=== PATIENT | male | born 1955 | race Two or more races ===

== ENCOUNTER 2018-05-01 10:09 | Emergency (ER) | payer BC ==
--- OUTSIDE RECORDS SUMMARY | 2018-05-01 10:18 | XMS REPORT | Continuity of Care Document ---
:1955 External Reference #:[id number] Author Name Fanny Vallejo Care Team Providers Name Role Phone Chris Ramsey MD Primary Care Physician Unavailable Payers Type Date Identification Numbers Payment Provider Subscriber Effective: Policy Number: [id number] BS Gabrielle Francisco Javier Pressley 2013 PayID: [id number] [address] [address] [place] [address] Advance Directives Description No Information Available Problems Date Description Provider Status Onset: 04/16/2018 Angina co-occurrent and due to coronary Bindu Akbar M.D. Active arteriosclerosis Onset: 03/06/2017 Carotid artery occlusion Bindu Akbar M.D. Active Onset: 12/15/2015 Obstructive sleep apnea syndrome Talya Gaston MD Active Onset: 10/02/2015 Obesity Talya Gaston MD Active Onset: 10/02/2015 Disturbance in sleep behavior Talya Gaston MD Active Onset: 09/12/2015 Pure hypercholesterolemia Bindu Akbar M.D. 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 Active Onset: 08/22/2014 Hyperlipidemia Bindu Akbar M.D. Active Onset: 08/22/2014 Coronary arteriosclerosis Bindu Akbar M.D. Active Family History Date Family Member(s) Problem(s) Comments General Diabetes Father due to Natural Causes () Father due to in his 90's () Mother due to Diabetes () Mother due to at () age 55 Siblings 2 Sister at age 63 d/t DM Brother healthy Social History Type Date Description Comments Sex Unknown Marital Status Lives With Alone Occupation Retired Tobacco Use Start: Unknown Never Smoked Cigarettes Smoking Status Reviewed: 04/16/18 Never Smoked Cigarettes ETOH Use Denies alcohol use Tobacco Use Start: Unknown Patient has never smoked Recreational Drug Use Denies Drug Use Exercise Type/Frequency Exercises rarely Allergies, Adverse Reactions, Alerts Description No Known Drug Allergies Medications Medication Date Status Form Strength Qnty SIG Indications Ordering Provider Mandibular 12/20/ Active Device dear , Talya Advancement 2015 please Marilin Device evaluate and MD fabricate oral appliance for mild sleep apnea Crestor 09/17/ Active Tablets 20mg 45tab 1/2 by mouth Bindu 2015 s every [place], M.D. Triamcinolone / Active Ointment 0.5% apply to Unknown Acetonide 0000 affected area twice daily as needed Actos / Active Tablets 45mg 1 by mouth Unknown 0000 every day ( taking in Am breakfast) Lisinopril / Active Tablets 5mg 1 by mouth Unknown 0000 every day ( taking in the Am breakfast same time as Amlodipine) Glipizide / Active Tablets 10mg 1 by mouth Unknown 0000 twice a day Janumet / Active Tablets 50-1000mg 1 by mouth Unknown 0000 twice a day Aspirin Low / Active Chewtabs 81mg 1 by mouth Unknown Strength 0000 every day ( taking in Am breakfast) Gabapentin / Active Capsules 100mg 1 by mouth Unknown 0000 three times a day Lantus Solostar / Active Solution 100Unit/M 12- 16 ml Unknown 0000 Pen-Inject L once a day Ulticare Micro / Active Misc 31G X 8 use daily Unknown Pen Chilton 31G 0000 mm daily with X 8mm pen injections. Freestyle Lite / Active use as Unknown Test Strip 0000 directed twice day or as needed Amlodipine 07/23/ Hx Tablets 2.5mg 30tab 1 by mouth I10 Bindu Besylate 2016 - every day ( [place], 08/08/ taking in Am M.D. 2016 breakfast) Bystolic 02/20/ Hx Tablets 5mg 15tab 1/2 tablet Bindu 2015 - by mouth Naomie, 07/23/ every day M.D. 2016 (pt is not taking ) Norvasc 09/11/ Hx Tablets 2.5mg 30tab 1 tap PO q I25.719 Bindu 2015 - s day [place], 11/16/ M.D. 2015 Metoprolol 09/11/ Hx Tablets ER 25mg 90tab 1/2 by mouth I25.719 Bindu Succinate ER 2016 - 24HR s every day [place], 12/18/ M.D. 2015 Lantus Solostar / Hx Solution 100Unit/M 10 units Unknown 0000 - Pen-Inject L daily 2015 Simvastatin / Hx Tablets 40mg 1 by mouth Unknown 0000 - every night 09/17/ at bedtime 2015 Viagra / Hx Tablets 100mg by mouth 0.5 Unknown 0000 - or 1 tab 1h 08/04/ 2015 intercourse Cialis / Hx prn Unknown 0000 - 2016 Advil / Hx Capsules 200mg 2 caps as Unknown 0000 - needed 2018 Amoxicillin/Cla / Hx Tablets 875-125mg 1 by mouth a Unknown vulanate - day Potassium 2018 Medications Administered in Office Medication Date Status Form Strength Qnty SIG Indications Ordering Provider Technetium TC Administered Injection Luke Bautista [id number] Juan R Huynh M.D., [facility], Per Unit Dose FASNC Up To 40 Millicuries Technetium TC Administered Injection Bindu 99M [id number] Juan R Akbar M.D. Per Unit Dose Up To 40 Millicuries Immunizations Description No Information Available Vital Signs Date Vital Result Comment 04/16/2018 3:45pm Height 63 inches 5'3" Weight 162.00 lb Heart Rate 91 /min BP Systolic Sitting 180 mmHg BP Diastolic Sitting 90 mmHg BMI (Body Mass Index) 28.7 kg/m2 03/06/2017 3:27pm Height 63 inches 5'3" Weight 153.00 lb w/ shoes Heart Rate 70 /min reg BP Systolic Sitting 136 mmHg Rue, reg cuff BP Diastolic Sitting 74 mmHg Rue, reg cuff BP Systolic Standing 134 mmHg Rue BP Diastolic Standing 80 mmHg Rue Respiratory Rate 16 /min BMI (Body Mass Index) 27.1 kg/m2 Ejection Fraction 60% as of 2015 stress test 08/08/2016 9:35am Height 63 inches 5'3" Weight 153.00 lb with shoes Heart Rate 70 /min BP Systolic Sitting 110 mmHg Rue reg cuff BP Diastolic Sitting 70 mmHg Rue reg cuff BP Systolic Standing 120 mmHg Rue reg cuff BP Diastolic Standing 90 mmHg Rue reg cuff Respiratory Rate 16 /min BMI (Body Mass Index) 27.1 kg/m2 07/23/2016 9:45am Height 63 inches 5'3" Weight 152.25 lb with shoes Heart Rate 62 /min BP Systolic Sitting 134 mmHg Lue reg cuff BP Diastolic Sitting 70 mmHg Lue reg cuff BP Systolic Standing 124 mmHg Lue reg cuff BP Diastolic Standing 70 mmHg Lue reg cuff Respiratory Rate 16 /min BMI (Body Mass Index) 27.0 kg/m2 07/12/2016 8:51am Height 63 inches 5'3" Weight 147.50 lb no shoes Heart Rate 64 /min BP Systolic Sitting 106 mmHg Rue reg cuff BP Diastolic Sitting 66 mmHg Rue reg cuff BP Systolic Standing 90 mmHg Rue reg cuff BP Diastolic Standing 62 mmHg Rue reg cuff Respiratory Rate 16 /min BMI (Body Mass Index) 26.1 kg/m2 01/18/2016 1:31pm Height 63 inches 5'3" Weight 152.00 lb Heart Rate 98 /min 110 standing BP Systolic Sitting 146 mmHg Rue, reg cuff BP Diastolic Sitting 94 mmHg Rue, reg cuff BP Systolic Standing 134 mmHg Rue BP Diastolic Standing 84 mmHg Rue Respiratory Rate 16 /min BMI (Body Mass Index) 26.9 kg/m2 12/15/2015 8:03am Height 63 inches 5'3" Weight 151.00 lb Heart Rate 73 /min BP Systolic Sitting 126 mmHg BP Diastolic Sitting 76 mmHg Respiratory Rate 14 /min O2 % BldC Oximetry 97 % BMI (Body Mass Index) 26.7 kg/m2 11/20/2015 3:54pm Height 63 inches 5'3" 2 Weight 151.00 lb with sandals Heart Rate 70 /min BP Systolic Sitting 128 mmHg LA reg cuff BP Diastolic Sitting 88 mmHg LA reg cuff BP Systolic Standing 122 mmHg LA reg cuff BP Diastolic Standing 82 mmHg LA reg cuff Respiratory Rate 16 /min BMI (Body Mass Index) 26.7 kg/m2 11/06/2015 2:23pm Height 63 inches 5'3" 2 Weight 150.00 lb with sandals Heart Rate 78 /min BP Systolic Sitting 118 mmHg LA reg cuff BP Diastolic Sitting 70 mmHg LA reg cuff BP Systolic Standing 122 mmHg LA re cuff BP Diastolic Standing 72 mmHg LA re cuff Respiratory Rate 16 /min BMI (Body Mass Index) 26.6 kg/m2 10/02/2015 10:16am Height 63 inches 5'3" 2 Weight 165.00 lb Heart Rate 67 /min BP Systolic Sitting 132 mmHg BP Diastolic Sitting 78 mmHg Respiratory Rate 14 /min O2 % BldC Oximetry 98 % BMI (Body Mass Index) 29.2 kg/m2 Neck Circumference in inches 14.5 09/27/2015 2:25pm Height 64.5 inches 5'4.50" Weight 150.00 lb Heart Rate 80 /min 88 BP Systolic Sitting 110 mmHg left arm, reg cuff BP Diastolic Sitting 70 mmHg left arm, reg cuff BP Systolic Standing 90 mmHg left arm, reg cuff BP Diastolic Standing 70 mmHg left arm, reg cuff Respiratory Rate 20 /min BMI (Body Mass Index) 25.3 kg/m2 Ejection Fraction 60% 09/05/15Nem 09/12/2015 9:09am Height 64.5 inches 5'4.50" Weight 155.00 lb w/ shoes Heart Rate 72 /min BP Systolic Sitting 140 mmHg Rue BP Diastolic Sitting 76 mmHg Rue BP Systolic Standing 142 mmHg Rue, reg cuff BP Diastolic Standing 78 mmHg Rue, reg cuff Respiratory Rate 16 /min BMI (Body Mass Index) 26.2 kg/m2 Ejection Fraction 60% as of 09/05/15 Nem 08/14/2015 2:35pm Height 64.5 inches 5'4.50" Weight 155.00 lb with shoes Heart Rate 96 /min BP Systolic Sitting 134 mmHg LA reg cuff BP Diastolic Sitting 84 mmHg LA reg cuff BP Systolic Standing 132 mmHg LA reg cuff BP Diastolic Standing 82 mmHg LA reg cuff BMI (Body Mass Index) 26.2 kg/m2 09/19/2014 8:50am Height 64.5 inches 5'4.50" Weight 155.75 lb w/o shoes Heart Rate 78 /min reg BP Systolic Sitting 150 mmHg Rue, reg cuff BP Diastolic Sitting 88 mmHg Rue, reg cuff BP Systolic Standing 160 mmHg Rue, reg cuff BP Diastolic Standing 100 mmHg Rue, reg cuff Respiratory Rate 18 /min BMI (Body Mass Index) 26.3 kg/m2 08/22/2014 2:05pm Height 64.5 inches 5'4.50" Weight 159.00 lb w/o shoes Heart Rate 90 /min BP Systolic 150 mmHg Lue, reg cuff BP Diastolic 84 mmHg Lue, reg cuff BP Systolic Sitting 160 mmHg Rue, reg cuff BP Diastolic Sitting 86 mmHg Rue, reg cuff BP Systolic Standing 156 mmHg Rue BP Diastolic Standing 82 mmHg Rue Respiratory Rate 18 /min BMI (Body Mass Index) 26.9 kg/m2 Results Test Date Facility Test Result H/L Range Note Laboratory test 07/12/2016 [facility] Potassium 5.1 mmol/L High 3.5-5.0 finding [address] [place] [address] [phone] Laboratory test 11/08/2015 [facility] Creatine 110 U/L N 10- 223 1 finding [address] [facility] Kinase(CK) [place] [address] [phone] Ast (Sgot) 18 U/L N 13-39 2 Lipid Profile 11/08/2015 [facility] Triglycerides 96 mg/dL N 3 (Trig/Chol/HDL) [address] [place] [address] [phone] Cholesterol 102 mg/dL N 4 HDL Cholesterol 32.5 mg/dL N 5 LDL Cholesterol 50 mg/dL N 6 Basic Metabolic Panel 09/28/2015 [facility] Sodium 134 mmol/L N 133-145 [address] [place] [address] [phone] Potassium 4.8 mmol/L N 3.5-5.0 Chloride 101 mmol/L N 101-111 Co2 Carbon Dioxide 25 mmol/L N 22-32 Anion Gap 8 mmol/L N 2-11 Glucose 218 mg/dL High 70-100 Blood Urea Nitrogen 26 mg/dL High 6-24 Creatinine 1.13 mg/dL N 0.67-1.17 BUN/Creatinine Ratio 23.0 High 8-20 Calcium 9.7 mg/dL N 8.6-10.3 Egfr Non- 66.2 N >60 Egfr 85.1 N >60 7 Lipid Profile 09/13/2015 [facility] Triglycerides 85 mg/dL N 8 (Trig/Chol/HDL) [address] [place] [address] [phone] Cholesterol 144 mg/dL N 9 HDL Cholesterol 41.9 mg/dL N 10 LDL Cholesterol 85 mg/dL N 11 Cath Panel 09/13/2015 [facility] Partial 40.9 seconds High 26.0-36.[address] [place] [address] PTT [phone] CBC Auto 09/13/2015 [facility] White Blood 8.3 10^3/uL N 3.5- 10.[address] [place] [address] [phone] Red Blood Count 4.66 10^6/uL N 4.0-5.4 Hemoglobin 14.4 g/dL N 14.0-18.0 Hematocrit 43 % N 42-52 Mean Corpuscular Volume 92 fL N 80-94 Mean Corpuscular Hemoglobin 31 pg N 27-31 Mean Corpuscular HGB Conc 34 g/dL N 31-36 Red Cell Distribution Width 13 % N 10.5-15 Platelet Count 174 10^3/uL N 150-450 Mean Platelet Volume 8 um3 N 7.4-10.4 Abs Neutrophils 5.8 10^3/uL N 1.5-7.7 Abs Lymphocytes 1.4 10^3/uL N 1.0-4.8 Abs Monocytes 0.8 10^3/uL N 0-0.8 Abs Eosinophils 0.1 10^3/uL N 0-0.6 Abs Basophils 0.1 10^3/uL N 0-0.2 Abs Nucleated RBC 0 10^3/uL N Granulocyte % 70.7 % N 38-83 Lymphocyte % 17.5 % Low 25-47 Monocyte % 9.8 % High 1-9 Eosinophil % 1.3 % N 0-6 Basophil % 0.7 % N 0-2 Nucleated Red Blood Cells % 0 N Basic Metabolic 09/13/2015 [facility] Sodium 132 mmol/L Low 133-[address] [place] [address] [phone] Potassium 5.4 mmol/L High 3.5-5.0 Chloride 98 mmol/L Low 101-111 Co2 Carbon Dioxide 28 mmol/L N 22-32 Anion Gap 6 mmol/L N 2-11 Glucose 246 mg/dL High 70-100 Blood Urea Nitrogen 19 mg/dL N 6-24 Creatinine 1.21 mg/dL High 0.67-1.17 BUN/Creatinine Ratio 15.7 N 8-20 Calcium 10.0 mg/dL N 8.6-10.3 Egfr Non- 61.2 N >60 Egfr 78.7 N >60 13 Inr/Protime 09/13/2015 [facility] Inr 1.10 N 0.89-1.[address] [place] [id number] [phone] 1 FASTING on crestor 20 mg. Copy Result to: CHRIS RAMSEY ([id number]) 2 FASTING on crestor 20 mg. Copy Result to: CHRIS RAMSEY ([id number]) 3 Desirable <150 Borderline high 150-199 High 200-499 Very High >500 4 Desirable <200 Borderline high 200-239 High >239 5 Low <40 Desirable: 40-60 High: >60 6 Desirable: <100 mg/dL Near Optimal: 100-129 mg/dL Borderline High: 130-159 mg/dL High: 160-189 mg/dL Very High: >189 mg/dL 7 Because ethnic data is not always readily available, this report includes an eGFR for both -Americans and non- Americans. The National Kidney Disease Education Program (NKDEP) does not endorse the use of the MDRD equation for patients that are not between the ages of 18 and 70, are , have extremes of body size, muscle mass, or nutritional status, or are non- or non-. According to the National Kidney Foundation, irrespective of diagnosis, the stage of the disease is based on the level of kidney function: Stage Description GFR(mL/min/1.73 m(2)) 1 Kidney damage with normal or decreased GFR 90 2 Kidney damage with mild decrease in GFR 60-89 3 Moderate decrease in GFR 30-59 4 Severe decrease in GFR 15-29 5 Kidney failure <15 (or dialysis) 8 Desirable <150 Borderline high 150-199 High 200-499 Very High >500 9 Desirable <200 Borderline high 200-239 High >239 10 Low <40 Desirable: 40-60 High: >60 11 Desirable: <100 mg/dL Near Optimal: 100-129 mg/dL Borderline High: 130-159 mg/dL High: 160-189 mg/dL Very High: >189 mg/dL 12 FASTING Copy Result to: CHRIS RAMSEY ([id number]) 13 Because ethnic data is not always readily available, this report includes an eGFR for both -Americans and non- Americans. The National Kidney Disease Education Program (NKDEP) does not endorse the use of the MDRD equation for patients that are not between the ages of 18 and 70, are , have extremes of body size, muscle mass, or nutritional status, or are non- or non-. According to the National Kidney Foundation, irrespective of diagnosis, the stage of the disease is based on the level of kidney function: Stage Description GFR(mL/min/1.73 m(2)) 1 Kidney damage with normal or decreased GFR 90 2 Kidney damage with mild decrease in GFR 60-89 3 Moderate decrease in GFR 30-59 4 Severe decrease in GFR 15-29 5 Kidney failure <15 (or dialysis) Procedures Date Code Description Status 04/16/2018 12011 EKG Tracing & Interpretation Completed 03/06/2017 89394 EKG Tracing & Interpretation Completed 08/06/2016 73599 Carotid Doppler,Bilateral Completed 07/23/2016 03061 EKG Tracing & Interpretation Completed 07/12/2016 99524 EKG Tracing & Interpretation Completed 01/18/2016 52568 EKG Tracing & Interpretation Completed 11/30/2015 81592 Sleep Study Unattended,HRT Rate,Oxygen Sat,Resp Completed Effort/Airflow 11/06/2015 22368 EKG Tracing & Interpretation Completed 09/18/2015 61651 Left Heart Cath. Incl S/I Coronaries, Angio S/I V Gram If Completed Done 09/05/2015 93405 Stress Test Completed 09/05/2015 73927 Myocardial Perfusion Imaging Tomographic (Spect) Multiple Completed Studies 08/14/2015 16341 EKG Tracing & Interpretation Completed 09/08/2014 19160 Treadmill Interp/Report Only Completed 09/08/2014 27283 Stress Test Supervsn W/Out I/R Completed 08/22/2014 36559 EKG Tracing & Interpretation Completed Encounters Type Date Location Provider Dx Diagnosis Office Visit 04/16/2018 [facility] Bindu Akbar, I25.119 Athscl heart 3:40p Of [employer] M.D. disease of [place] cor art w unsp ang pctrs R06.02 Shortness of breath I10 Essential (primary) hypertension E78.00 Pure hypercholesterolemia, unspecified R07.9 Chest pain, unspecified Office Visit 03/06/2017 3:15p [facility] Bindu Akbar, I25.10 Athscl heart Of [facility] M.D. disease of n[place] coronary artery w/o ang pctrs E78.5 Hyperlipidemia, unspecified I65.23 Occlusion and stenosis of bilateral carotid arteries I10 Essential (primary) hypertension F52.21 Male erectile disorder E11.8 Type 2 diabetes mellitus with unspecified complications Office Visit 08/08/2016 9:45a [facility] TITO Hart R42 Dizziness and Of [facility] giddiness R53.1 Weakness I25.10 Athscl heart disease of [place] coronary artery w/o ang pctrs E78.5 Hyperlipidemia, unspecified I65.23 Occlusion and stenosis of bilateral carotid arteries Office Visit 07/23/2016 10:00a [facility] TITO Hart I25.10 Athscl heart Of [facility] disease of [place] coronary artery w/o ang pctrs I10 Essential (primary) hypertension E87.5 Hyperkalemia R53.83 Other fatigue Office Visit 07/12/2016 9:00a [facility] Bindu Akbar I25.10 Athscl heart Of [facility] M.D. disease of [place] coronary artery w/o ang pctrs E11.8 Type 2 diabetes mellitus with unspecified complications E78.00 Pure hypercholesterolemia, unspecified I10 Essential (primary) hypertension E87.5 Hyperkalemia Office Visit 01/18/2016 1:30p [facility] Bindu Akbar I25.10 Athscl heart Of [facility] M.D. disease of [place] coronary artery w/o ang pctrs E11.8 Type 2 diabetes mellitus with unspecified complications E78.00 Pure hypercholesterolemia, unspecified I10 Essential (primary) hypertension G47.33 Obstructive sleep apnea (adult) (pediatric) Office Visit 12/15/2015 8:00a [facility] And Talya G47.33 Obstructive sleep Sleep Services Of MD Marilin apnea (adult) [facility] (pediatric) Office Visit 11/06/2015 2:30p [facility] Bindu Akbar, I25.10 Athscl heart Of [facility] M.D. disease of [place] coronary artery w/o ang pctrs I10 Essential (primary) hypertension E78.0 Pure hypercholesterolemia E11.8 Type 2 diabetes mellitus with unspecified complications M79.1 Myalgia F52.21 Male erectile disorder Office Visit 10/02/2015 10:15a [facility] Talya G47.9 Sleep disorder, Sleep Services Of MD Marilin unspecified [facility] Office Visit 09/27/2015 2:40p [facility] Marlon Rivera I25.10 Athscl heart Of [facility] AT [facility] [place] MD Feng, disease of nul[place] FACC, FSCAI coronary artery w/o ang pctrs Office Visit 09/12/2015 9:00a [facility] Bindu Akbar, I25.719 Athscl autologous Of [facility] M.Gene. vein CABG w unsp angina pectoris E11.8 Type 2 diabetes mellitus with unspecified complications I10 Essential (primary) hypertension E78.0 Pure hypercholesterolemia Office Visit 08/14/2015 3:00p [facility] Bindu Akbar, I25.10 Athscl heart Of [facility] M.D. disease of [place] coronary artery w/o ang pctrs R07.9 Chest pain, unspecified E78.5 Hyperlipidemia, unspecified E11.8 Type 2 diabetes mellitus with unspecified complications I10 Essential (primary) hypertension G47.9 Sleep disorder, unspecified Office Visit 09/19/2014 9:00a [facility] TITO Hart 414.9 Ischemic Heart Of [facility] Disease Chronic Unspec 780.4 Dizziness & Giddiness 272.4 Hyperlipidemia Other Unspec 250.00 Diabetes Mellitus W/O Compl Type II Or Unspec Controlled Office Visit 08/22/2014 [place] Bindu Akbar, 414.01 Coronary 2:00p Cardiology Of MJeanette Atherosclerosis [facility] [place] 272.4 Hyperlipidemia Other Unspec Plan of Treatment Future Appointment(s):05/18/2018 1:50 pm - Bindu Akbar M.D. at [facility]05/05/2018 1:00 pm - Ica ECHO Schedule at [facility]04/28/2018 8:45 am - Blaise Farrell DO FACC at [facility]04/16/2018 - Bindu Akbar M.D.I25.119 Atherosclerotic heart disease of [place] coronary artery withNew Orders:Stress Test, Exercise Nuclear, Scheduled: 04/28/18Echocardiogram, Scheduled: 04/29/18Comments:Call an MD or go to ED is angina comes back.Follow up:after [id number] Shortness of breathNew Xrays: Chest PA & Lat 2 VWS, Ordered: 04/16/18New Orders:Echocardiogram, Scheduled : 04/29/18I10 Essential (primary) hypertensionFollow up:Release most recent labs Family med: Lytes and lipids If no labs w/in a year I need to update/ order.E78.00 Pure hypercholesterolemia, [id number] Chest pain, unspecified
[2018-05-01 10:19] VITALS: BP 135/93
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
[2018-05-01 12:02] LABS: Influenza A Molecular POSITIVE (Negative)
== END 2018-05-01 12:17 | disposition home or self-care (01) ==
LOC: UCEAST 10:09
DX: J10.1 Influenza due to other identified influenza virus with other respiratory manifestations (principal); I10 Essential (primary) hypertension
CPT/HCPCS: 99212; G0463

== ENCOUNTER 2024-02-22 15:26 | Inpatient (IN) ==
[2024-02-22] MEDS: Lactated Ringers 1000 ml BAG 1,000 ML IV ONE (17:01)
[2024-02-22 17:14] LABS: ABS Basophils 0.1 10^3/uL (0.0-0.1); ABS Lymphocytes 1.4 10^3/uL (1.0-4.8); ABS Neutrophils 10.2 10^3/uL (1.5-7.6); Eosinophil % 0.3 %; Hemoglobin 12.2 g/dL (13.2-16.3); Lymphocyte % 10.7 %; Mean Corpuscular Hemoglobin 31.9 pg (27-33); Mean Corpuscular Hgb Conc 33.8 g/dL (31-36); Mean Corpuscular Volume 94.2 fL (80-97); Mean Platelet Volume 8.5 fL (7.5-11.2); Platelet Count 153 10^3/uL (150-450); Red Blood Count 3.82 10^6/uL (4.06-5.63); Red Cell Distribution Width 13.6 % (12-17); White Blood Count 12.7 10^3/uL (3.6-10.2)
[2024-02-22 17:19] LABS: INR 1.21 (0.85-1.14)
[2024-02-22 17:33] LABS: High Sens Troponin Baseline 15 pg/mL (<20)
[2024-02-22 18:00] LABS: ALT 107 U/L (7-52); AST 141 U/L (13-39); Albumin 3.9 g/dL (3.2-5.2); Albumin/Globulin Ratio 1.4 (1-3); Alkaline Phosphatase 72 U/L (35-149); Anion Gap 13 mmol/L (2-16); Blood Urea Nitrogen 39 mg/dL (6-24); C Reactive Protein < 1.00 mg/L (<8.01); CO2 Carbon Dioxide 17 mmol/L (22-32); Calcium 8.6 mg/dL (8.6-10.3); Chloride 102 mmol/L (101-111); Creatinine, Serum 2.71 mg/dL (0.67-1.17); Globulin 2.7 g/dL (2-4); Glucose 241 mg/dL (70-100); Magnesium 1.8 mg/dL (1.9-2.7); Potassium 4.4 mmol/L (3.5-5.0); Sodium 132 mmol/L (135-145); Total Bilirubin 0.6 mg/dL (0.2-1.0); Total Protein 6.6 g/dL (6.4-8.9); eGFR CKD-EPI 24.8 (>60)
[2024-02-22 18:14] LABS: TSH Ultra Thyroid Stim Horm 2.39 mcIU/mL (0.34-5.60)
[2024-02-22 18:42] LABS: High Sensitivity Troponin 1 Hr 15 pg/mL (<20)
[2024-02-22 19:32] LABS: Urine Appearance Clear; Urine Bilirubin Negative (Negative); Urine Blood 3+ (Negative); Urine Color Colorless; Urine Glucose 4+ (>=1000 mg/dL) (Negative); Urine Ketones Trace (Negative); Urine Nitrite Negative (Negative); Urine Protein 1+ (>=30 mg/dL) (Negative); Urine Specific Gravity 1.009 (1.002-1.030); Urine Urobilinogen Negative (Negative); Urine pH 5.5 (5.0-8.0)
[2024-02-22 19:39] LABS: Urine Bacteria 1+ /HPF (Absent); Urine Red Blood Cell Trace(0-2/hpf) /HPF (0-Trace); Urine Sperm Present /HPF (Absent); Urine White Blood Cell Absent /HPF (0-Trace)
[2024-02-22] MEDS ORDERED: Dextrose 50% Syringe 50 ml 25 GM/50 ML SYRINGE IV PUSH PRN (21:47)
[2024-02-22 22:15] LABS: PCO2 Arterial 35 mmHg (35-45); PO2 Arterial 84 mmHg (80-100)
[2024-02-22 23:48] LABS: Creatine Kinase 5930 U/L (10-223)
[2024-02-23] MEDS: Lactated Ringers 1000 ml BAG 500 ML IV ONE ×2 (00:40→11:50)
[2024-02-23] MEDS: Cyanocobalamin INJ 1,000 MCG/ML VIAL 1 ML VIAL IM ONE ×2 (00:42→09:15)
[2024-02-23] MEDS: Lactated Ringers 1000 ml BAG 1,000 ML IV SCH ×2 (02:29→12:40)
[2024-02-23 06:28] LABS: ABS Basophils 0.1 10^3/uL (0.0-0.1); ABS Eosinophils 0.1 10^3/uL (0.0-0.5); ABS Lymphocytes 2.3 10^3/uL (1.0-4.8); ABS Monocytes 1.1 10^3/uL (0.0-1.1); Eosinophil % 0.8 %; Hematocrit 31.7 % (38-53); Lymphocyte % 18.3 %; Mean Corpuscular Hemoglobin 32.3 pg (27-33); Mean Corpuscular Hgb Conc 34.7 g/dL (31-36); Mean Corpuscular Volume 93.1 fL (80-97); Platelet Count 150 10^3/uL (150-450); Red Cell Distribution Width 13.4 % (12-17); White Blood Count 12.6 10^3/uL (3.6-10.2)
[2024-02-23 07:14] LABS: Calcium 8.3 mg/dL (8.6-10.3); Creatinine, Serum 2.45 mg/dL (0.67-1.17); Potassium 3.8 mmol/L (3.5-5.0)
[2024-02-23 07:25] LABS: Albumin 3.5 g/dL (3.2-5.2); Albumin/Globulin Ratio 1.5 (1-3); Globulin 2.4 g/dL (2-4); Total Bilirubin 0.5 mg/dL (0.2-1.0); Total Protein 5.9 g/dL (6.4-8.9)
[2024-02-23 07:47] LABS: Magnesium 1.7 mg/dL (1.9-2.7); Phosphorus 2.4 mg/dL (2.5-5.0)
[2024-02-23] MEDS: Insulin GLARGINE 100 un/ml 10 ml VIAL SUBCUT SCH (08:06)
[2024-02-23] MEDS: Potassium Chlor 20 meq TAB.ER PO ONE (09:15)
[2024-02-23] MEDS: Magnesium Sulfate 2 gm BAG 2 GM/50 ML BAG IVPB ONE (09:15)
[2024-02-23] MEDS ORDERED: Sulfur Hexaflouride MICROSPHR 25 MG VIAL IV PRN (10:27)
[2024-02-23] MEDS: Magnesium Sulfate IV 1GM/100ML 1 GM/100 ML BAG IV ONE (11:50)
[2024-02-23] MEDS: Potassium Phosphate IV 5 MMOL in NS 0.9% 250 ml 250 ML IVPB ONE (12:40)
[2024-02-23] MEDS: SMOG Enema (MgOH-NS-Gly-MinO) 330 ML ENEMA PR ONE (17:48)
[2024-02-23] MEDS: Enoxaparin 30 MG/0.3 ML SYR SUBCUT SCH (20:28)
[2024-02-23] MEDS: Polyethylene Glycol 3350 17 GM PACKET PO PRN (20:28)
[2024-02-23] MEDS: Senna TAB 8.6 mg TAB PO PRN (20:28)
[2024-02-23 21:22] LABS: Ferritin 74.8 ng/mL (24-336)
[2024-02-24 06:01] LABS: ABS Basophils 0.1 10^3/uL (0.0-0.1); ABS Eosinophils 0.1 10^3/uL (0.0-0.5); ABS Lymphocytes 1.5 10^3/uL (1.0-4.8); ABS Neutrophils 7.8 10^3/uL (1.5-7.6); ABS Nucleated RBC 0.01 10^3/ul; Hemoglobin 11.2 g/dL (13.2-16.3); Lymphocyte % 14.7 %; Mean Corpuscular Volume 91.7 fL (80-97); Mean Platelet Volume 8.3 fL (7.5-11.2); Nucleated Red Blood Cells % 0.1 %/100WBC (0.0-0.8); Platelet Count 139 10^3/uL (150-450); Red Blood Count 3.38 10^6/uL (4.06-5.63); Red Cell Distribution Width 13.4 % (12-17); White Blood Count 10.6 10^3/uL (3.6-10.2)
[2024-02-24 06:44] LABS: Calcium 8.2 mg/dL (8.6-10.3); Creatinine, Serum 1.98 mg/dL (0.67-1.17); Potassium 3.6 mmol/L (3.5-5.0); eGFR CKD-EPI 36.1 (>60)
[2024-02-24 07:51] LABS: Albumin 3.5 g/dL (3.2-5.2); Albumin/Globulin Ratio 1.5 (1-3); Globulin 2.3 g/dL (2-4); Magnesium 2.3 mg/dL (1.9-2.7); Phosphorus 2.2 mg/dL (2.5-5.0); Total Bilirubin 0.6 mg/dL (0.2-1.0); Total Protein 5.8 g/dL (6.4-8.9)
[2024-02-24] MEDS: Potassium Chlor 20 meq TAB.ER PO ONE (08:36)
[2024-02-24 10:02] LABS: C Reactive Protein 1.02 mg/L (<8.01)
[2024-02-24] MEDS: Potassium Phosphate IV 15 MMOL in NS 0.9% 250 ml 250 ML IVPB ONE (10:11)
[2024-02-24] MEDS: Senna TAB 8.6 mg TAB PO SCH (10:12)
[2024-02-24] MEDS: Polyethylene Glycol 3350 17 GM PACKET PO SCH (10:12)
[2024-02-24] MEDS: Insulin GLARGINE 100 un/ml 10 ml VIAL SUBCUT ONE (10:13)
[2024-02-24 10:53] LABS: Erythrocyte Sed Rate 52 mm/Hr (0-19)
[2024-02-24] MEDS: Lactated Ringers 1000 ml BAG 1,000 ML IV SCH ×2 (11:47→12:18)
[2024-02-24 14:37] LABS: ABS Eosinophils 0.1 10^3/uL (0.0-0.5); ABS Lymphocytes 1.2 10^3/uL (1.0-4.8); ABS Monocytes 0.8 10^3/uL (0.0-1.1); ABS Neutrophils 7.2 10^3/uL (1.5-7.6); Eosinophil % 0.5 %; Hematocrit 29.2 % (38-53); Hemoglobin 10.4 g/dL (13.2-16.3); Lymphocyte % 12.7 %; Mean Corpuscular Hgb Conc 35.8 g/dL (31-36); Mean Corpuscular Volume 92.2 fL (80-97); Mean Platelet Volume 8.3 fL (7.5-11.2); Platelet Count 128 10^3/uL (150-450); Red Blood Count 3.16 10^6/uL (4.06-5.63); Red Cell Distribution Width 13.3 % (12-17); White Blood Count 9.3 10^3/uL (3.6-10.2)
[2024-02-24 15:16] LABS: Calcium 7.9 mg/dL (8.6-10.3); Creatinine, Serum 2.09 mg/dL (0.67-1.17); eGFR CKD-EPI 33.8 (>60)
[2024-02-24 15:19] LABS: Albumin 3.2 g/dL (3.2-5.2); Albumin/Globulin Ratio 1.4 (1-3); Globulin 2.3 g/dL (2-4); Total Bilirubin 0.6 mg/dL (0.2-1.0); Total Protein 5.5 g/dL (6.4-8.9)
[2024-02-25 05:58] LABS: ABS Basophils 0.1 10^3/uL (0.0-0.1); ABS Eosinophils 0.1 10^3/uL (0.0-0.5); ABS Lymphocytes 1.5 10^3/uL (1.0-4.8); ABS Monocytes 0.9 10^3/uL (0.0-1.1); ABS Neutrophils 6.7 10^3/uL (1.5-7.6); Hematocrit 32.2 % (38-53); Hemoglobin 11.2 g/dL (13.2-16.3); Lymphocyte % 16.5 %; Mean Corpuscular Hemoglobin 32.5 pg (27-33); Mean Corpuscular Hgb Conc 34.8 g/dL (31-36); Mean Corpuscular Volume 93.4 fL (80-97); Mean Platelet Volume 8.8 fL (7.5-11.2); Platelet Count 149 10^3/uL (150-450); Red Blood Count 3.44 10^6/uL (4.06-5.63); Red Cell Distribution Width 13.3 % (12-17); White Blood Count 9.2 10^3/uL (3.6-10.2)
[2024-02-25 07:23] LABS: Calcium 8.3 mg/dL (8.6-10.3); Creatinine, Serum 2.17 mg/dL (0.67-1.17); Potassium 4.1 mmol/L (3.5-5.0); eGFR CKD-EPI 32.4 (>60)
[2024-02-25 07:47] LABS: Albumin 3.5 g/dL (3.2-5.2); Albumin/Globulin Ratio 1.4 (1-3); Globulin 2.5 g/dL (2-4); Magnesium 2.1 mg/dL (1.9-2.7); Phosphorus 3.2 mg/dL (2.5-5.0); Total Bilirubin 0.6 mg/dL (0.2-1.0)
[2024-02-25] MEDS: Insulin GLARGINE 100 un/ml 10 ml VIAL SUBCUT SCH (09:11)
[2024-02-25] MEDS: Lactated Ringers 1000 ml BAG 500 ML IV ONE (12:13)
[2024-02-25] MEDS: Lactated Ringers 1000 ml BAG 1,000 ML IV SCH (13:00)
[2024-02-25] MEDS: Insulin GLARGINE 100 un/ml 10 ml VIAL SUBCUT ONE (15:10)
[2024-02-25 20:24] LABS: Anaplasma phagocytophilum Negative (Negative); B. miyamotoi PCR, B Negative (Negative); Babesia divergens/MO-1 Negative (Negative); Babesia ducani Negative (Negative); Ehrlichia chaffeensis Negative (Negative); Ehrlichia ewingii/canis Negative (Negative); Ehrlichia muris eauclairensis Negative (Negative)
[2024-02-25] MEDS ORDERED: Dextrose 50% Syringe 50 ml 25 GM/50 ML SYRINGE IV PUSH PRN (21:51)
[2024-02-26 06:10] LABS: Hematocrit 30.2 % (38-53); Hemoglobin 10.6 g/dL (13.2-16.3); Mean Corpuscular Hemoglobin 32.7 pg (27-33); Mean Corpuscular Hgb Conc 35.2 g/dL (31-36); Mean Corpuscular Volume 92.9 fL (80-97); Platelet Count 145 10^3/uL (150-450); Red Blood Count 3.26 10^6/uL (4.06-5.63); Red Cell Distribution Width 13.5 % (12-17); White Blood Count 10.6 10^3/uL (3.6-10.2)
[2024-02-26 06:29] LABS: Calcium 8.4 mg/dL (8.6-10.3); Creatinine, Serum 2.01 mg/dL (0.67-1.17); Potassium 3.9 mmol/L (3.5-5.0); eGFR CKD-EPI 35.5 (>60)
[2024-02-26 06:57] LABS: Albumin 3.3 g/dL (3.2-5.2); Albumin/Globulin Ratio 1.4 (1-3); Globulin 2.3 g/dL (2-4); Total Bilirubin 0.5 mg/dL (0.2-1.0); Total Protein 5.6 g/dL (6.4-8.9)
[2024-02-26] MEDS: Insulin GLARGINE 100 un/ml 10 ml VIAL SUBCUT SCH (10:50)
[2024-02-26] MEDS: Potassium Chlor 10 meq TAB PO ONE (10:50)
[2024-02-27 06:17] VITALS: BP 124/72
[2024-02-27 06:25] LABS: Hematocrit 28.2 % (38-53); Hemoglobin 9.8 g/dL (13.2-16.3); Mean Corpuscular Hemoglobin 32.3 pg (27-33); Mean Corpuscular Hgb Conc 34.6 g/dL (31-36); Mean Corpuscular Volume 93.2 fL (80-97); Mean Platelet Volume 8.4 fL (7.5-11.2); Platelet Count 136 10^3/uL (150-450); Red Blood Count 3.03 10^6/uL (4.06-5.63); Red Cell Distribution Width 13.6 % (12-17); White Blood Count 9.8 10^3/uL (3.6-10.2)
[2024-02-27 06:41] LABS: Calcium 8.1 mg/dL (8.6-10.3); Creatinine, Serum 2.04 mg/dL (0.67-1.17); Potassium 4.6 mmol/L (3.5-5.0); eGFR CKD-EPI 34.8 (>60)
[2024-02-27 07:35] LABS: Albumin/Globulin Ratio 1.4 (1-3); Globulin 2.2 g/dL (2-4); Total Bilirubin 0.6 mg/dL (0.2-1.0); Total Protein 5.2 g/dL (6.4-8.9)
== END 2024-02-27 10:03 | disposition home or self-care (01) | DRG 558 ==
LOC: ED 15:26 → EDHOLD 15:26 → SUATTDRO 21:00 → MEDTELE 22:12
PROVIDERS: ADMIT Internal Medicine; ATTEND Internal Medicine